=== PATIENT | female | born 1985 | race Caucasian/White ===

== ENCOUNTER 2019-05-19 19:51 | Emergency (ER) | payer OTHER ==
--- OUTSIDE RECORDS SUMMARY | 2019-05-19 19:52 | XMS REPORT ---
:1985 [facility] [address] [place] [address] Dr. Roberts [address] [place] [id number] Care Team Providers Name Role Phone Unavailable Unavailable Unavailable Problems This patient has no known problems. Allergies, Adverse Reactions, Alerts This patient has no known allergies or adverse reactions. Medications This patient has no known medications.
[2019-05-19] MEDS ORDERED: IBUPROFEN 400 MG TAB ONE (20:35)
[2019-05-19] MEDS ORDERED: CYCLOBENZAPRINE 10 MG TAB ONE (20:35)
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
[2019-05-19 22:28] VITALS: BP 123/75; TEMP 98.3; O2SAT 99
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
== END 2019-05-19 22:12 | disposition home or self-care (01) ==
LOC: ER 19:51
DX: M54.5 Low back pain (principal); M62.830 Muscle spasm of back; V43.62XA Car passenger injured in collision with other type car in traffic accident, initial encounter; Y93.89 Activity, other specified; Y92.410 Unspecified street and highway as the place of occurrence of the external cause
CPT/HCPCS: 72070; 99284

== ENCOUNTER 2019-12-26 20:01 | Emergency (ER) | payer OTHER ==
--- NOTE | 2019-12-26 21:55 | ER ---
Nurse's Notes [facility] Name: Basia Santana Age: 34 yrs Sex: Female : 1985 Arrival Date: 12/26/2019 Time: 20:02 Bed Waiting Private MD: Diagnosis: Presentation: 12/25 20:46 Chief complaint: Patient states: "covid" symptoms for 3 days, chills fever body aches dm5 migraines, tightness of chest can't breathe, Temp not taken at home, temp 99 here. Coronavirus screen: Patient reports a cough. Patient reports shortness of breath or difficulty breathing. Patient reports a measured and/or subjective temperature greater than 100.4F. Patient reports contact with known and/or suspected case of COVID-19. Ebola Screen: Patient negative for fever greater than or equal to 101.5 degrees Fahrenheit, and additional compatible Ebola Virus Disease symptoms Patient denies exposure to infectious person. Patient denies travel to an Ebola-affected area in the 21 days before illness onset. No symptoms or risks identified at this time. Initial Sepsis Screen: Does the patient meet any 2 criteria? No. Patient's initial sepsis screen is negative. Does the patient have a suspected source of infection? Yes: Other: possible COVID. Risk Assessment: Do you want to hurt yourself or someone else? Patient reports no desire to harm self or others. Onset of symptoms was December 23, 2019. 20:46 Method Of Arrival: Ambulatory dm5 20:46 Acuity: JANETT 4 dm5 Historical: - Allergies: 20:49 No Known Allergies; dm5 Vital Signs: 20:46 BP 118 / 76; Pulse 97; Resp 18; Temp 99(O); Pulse Ox 98% on R/A; Weight 72.57 kg (R); dm5 Height 5 ft. 3 in. (160.02 cm) (R); Pain 7/10; 20:46 Body Mass Index 28.34 (72.57 kg, 160.02 cm) dm5 ED Course: 20:02 Patient arrived in ED. cl3 20:49 Triage completed. dm5 Administered Medications: No medications were administered Outcome: 21:55 Patient left the ED. dm5 Signatures: Delores Anna RN RN dm5 Pradip Pedro 3
[2019-12-26 21:59] VITALS: BP 118/76; TEMP 99; O2SAT 98
== END 2019-12-26 21:55 | disposition left against medical advice (07) ==
LOC: ER 20:01
DX: R50.9 Fever, unspecified (principal); Z53.21 Procedure and treatment not carried out due to patient leaving prior to being seen by health care provider
CPT/HCPCS: 99281

== ENCOUNTER 2022-02-10 11:47 | Emergency (ER) | payer SELFPAY ==
--- OUTSIDE RECORDS SUMMARY | 2022-02-10 11:51 | XMS REPORT | Continuity of Care Document ---
:1985 Author Organization [facility] t Address [address] [place] [address] Care Team Providers Name Role Phone KALIA CHRISTINE Primary Care Physician Unavailable APURVA SQUIRES Attending Clinician Unavailable Oxana Squires DO Attending Clinician Apurva Jha Attending Clinician Po, Acute Care Clinic Attending Clinician Unavailable Payers Payer Name Policy Type Policy Number Effective Date Expiration Date S cristel [facility] - [id number] 2016 OUT OF STATE 00:00:00 [facility] [id number] [address] [facility] MEDICAID 00:00:00 Problems Condition Condition Condition Status Onset Resolution Last Treating Co mments Source Name Details Category Date Date Treatment Clinician Date ASCUS of ASCUS of Disease Active Overview: Un abner cervix cervix 5-13 07/2018 ity of with with 00:00: per Dr. Encinas negative negative 00 [facility] high risk high risk records [facility] HPV HPV in external provided. Needs repeat pap and cotesting in 2021 Encounter Encounter Disease Active Uni vers for for 507 [place] prescript[place] 00 Medical depo-Prove depo-Prove Br anch ra ra Contracept Contracept Disease Active U nivers hailey hailey 6-03 [place] of management [place] Over Over Disease Active Univers weight weight 6-03 ity of 00:00: [place] 00 Medical Branch Allergies, Adverse Reactions, Alerts Allergy Allergy Status Severity Reaction(s) Onset Inactive Treating Comm ents Source Name Type Date Date Clinician NO KNOWN Drug Active Univers ALLERGIE Class ity of S [facility] Social History Social Habit Start Date Stop Date Quantity Comments Source Sex Assigned At [facility] [place] y of [facility] Exposure to Not sure University of SARS-CoV-2 [facility] (event) [place] History of Cigarette Smoker Universi ty of tobacco use [facility] Tobacco use and 2018-10-29 2018-10-29 Never used Universit y of exposure 00:00:00 00:00:00 [facility] Cigarettes smoked 2018-10-29 2018-10-29 Univers ity of current (pack per 00:00:00 00:00:00 [facility] ) - Reported Branch Cigarette 2018-10-29 2018-10-29 University of pack-years 00:00:00 00:00:00 [facility] Alcohol intake 2018-10-29 2018-10-29 Current drinker of Un iversity of 00:00:00 00:00:00 alcohol (finding) [facility] Alcohol Comment 2009-03-02 2009-03-02 occasionally Univers ity of 00:00:00 00:00:00 [facility] Smoking Status Start Date Stop Date Source Current every day smoker 2018-10-29 00:00:00 Uni versity of [facility] Medications Ordered Filled Start Stop Current Ordering Indication Dosage Frequency Signature Comments Components Source Medication Medication Date Date Medication? Clinician (SIG) Name Name ampicillin- 2019-06 2020- No 3000mg 3,000 mg, [facility] sulbactam 08-07 IV ity of (UNASYN) 01:00[place] 00:43 [place] 3[place] mg in 00 :00 ONCE, 1 Medic al NaCl 0.9% dose, [facility] h (NS) 100 mL 06/05/20 MINI-BAG at 1900, 100 mL
Reas on for Anti-Infec tive: Empiric Therapy for Suspected Infection< br>Empiric Therapy Site: Skin / Soft tissue
Duration of therapy: 72 hours FENTanyl PF 2019-06- No 50ug 50 mcg, Un abner (SUBLIMAZE 08-06 Slow IV ity o f (PF)) 23:15: 23:09 Push, [place] injection 00 :00 ONCE, 1 Medical 50 mcg dose, Fri Branch 06/05/20 at 1715, Routine amoxicillin 2020- 2020- No [id number] 1{tbl} Take 1 Univers -clavulanat 2-18 12-29 tablet by it y of e 875-125 00:00: 05:59 mouth [place] mg per 00 :00 every 12 Medical tablet (twelve) Branch hours for 10 days. medroxyPROG 2018- Yes [id number] 150mg Univers ESTERone 5-07 ity of (DEPO-PROVE 15:00: [place] RA) 00 Medical injection Branch 150 mg medroxyPROG 2018-0 Yes [id number] 150mg Univers ESTERone 5-07 ity of (DEPO-PROVE 15:00: [place] RA) 00 Medical injection Branch 150 mg medroxyPROG 2018- Yes [id number] 150mg Univers ESTERone 5-07 ity of (DEPO-PROVE 15:00: [place] RA) 00 Medical injection Branch 150 mg isotretinoi Yes Take by Uni vers n (ABSORICA 5-07 mouth. ity of ORAL) 14:36: [address] isotretinoi Yes Take by Uni vers n (ABSORICA 5-07 mouth. ity of ORAL) 14:36: [address] isotretinoi Yes Take by Uni vers n (ABSORICA 5-07 mouth. ity of ORAL) 14:36: [address] Immunizations Ordered Filled Immunization Date Status Comments [facility] e Immunization Name Name Influenza Virus 2018-04-06 Completed Universit y of Vaccine Quad .5 mL 00:00:00 [facility] IM 6+ MO [place] Influenza Virus 2018-04-06 Completed Universit y of Vaccine Quad .5 mL 00:00:00 [facility] IM 6+ MO [place] Influenza Virus 2018-04-06 Completed Universit y of Vaccine Quad .5 mL 00:00:00 [facility] IM 6+ MO [place] Influenza Virus 2015-09-25 Completed Universit y of Vaccine Quad IM 3+ 00:00:00 [facility] Influenza Virus 2015-09-25 Completed Universit y of Vaccine Quad IM 3+ 00:00:00 [facility] Influenza Virus 2015-09-25 Completed Universit y of Vaccine Quad IM 3+ 00:00:00 [facility] Influenza Virus 2015-03-25 Completed Universit y of Vaccine Quad IM 3+ 00:00:00 [facility] Influenza Virus 2015-03-25 Completed Universit y of Vaccine Quad IM 3+ 00:00:00 [facility] Influenza Virus 2015-03-25 Completed Universit y of Vaccine Quad IM 3+ 00:00:00 [facility] TDAP 2015-02-25 Completed University 00:00:00 [facility] TDAP 2015-02-25 Completed University 00:00:00 [facility] TDAP 2015-02-25 Completed [facility] 00:00:00 [facility] Vital Signs Vital Name Observation Time Observation Value Comments Source Systolic blood 2020-06-06 01:28:00 119 mm[Hg] Univer sity of pressure [facility] Diastolic blood 2020-06-06 01:28:00 56 mm[Hg] [facility] Heart rate 2020-06-06 01:28:00 61 /min [facility] Respiratory rate 2020-06-06 01:28:00 16 /min [facility] Oxygen saturation in 2020-06-06 01:28:00 100 /min [facility] Arterial blood by [facility] Pulse oximetry [place] Body temperature 2020-06-05 21:30:00 37.33 Mandi [facility] Body height 2020-06-05 21:30:00 160 cm [facility] Body weight 2020-06-05 21:30:00 76.839 kg [facility] BMI 2020-06-05 21:30:00 30.01 kg/m2 [facility] Procedures Procedure Date / Time Performed Performing Clinician Sour e URINALYSIS 2020-06-05 22:41:00 Oxana Squires [facility] POCT TEST 2020-06-05 22:41:00 Ox[facility] Squires [facility] 2020-06-05 22:38:00 Oxana Squires [facility] HEPATIC FUNCTION PANEL 2020-06-05 22:38:[address] [facility] ([id number]) [facility] (ALB,T.PRO,BILI T,BU/BC,ALT,AST,ALK PHOS) BASIC METABOLIC PANEL 2020-06-05 22:38:00 Oxana Squires [facility] (NA, K, CL, CO2, Medical Branch GLUCOSE, BUN, CREATININE, CA) CBC WITH DIFF 2020-06-05 22:38:00 Oxana Squires Universit y of [facility] NOTICE OF PRIVACY 2020-06-05 21:15:09 Doctor Unassigned, No [facility] CONSENT/REFUSAL FOR 2020-06-05 21:14:46 Doctor Unassigned, No [facility] AND Name [facility] Branch TREATMENT Encounters Start End Encounter Admission Attending Care Care Encounter Source Date/Time Date/Time Type Type Clinicians Facility Department ID 2021-04-17 Emergency [facility] [id number] Univers 12:12:15 ity [facility] [place] [facility] 2021-06-07 2021-06-07 Outpatient [facility] [id number] Univers 15:15:00 15:15:00 APURVA [id number] ity [facility] [place] [facility] 2021-06-07 2021-06-07 [facility] [id number] Univers 15:15:00 15:15:00 APURVA [facility] 2020-06-05 2020-06-05 Emergency [facility] [id number] Univers 15:34:00 19:35:00 Oxana [place] [id number] ity of [place] [id number] [facility] [phone] [facility] 084 Branch 2019-12-26 2019-12-26 Telephone [facility] [id number] Univers 00:00:00 00:00:00 Apurva Le [facility] [id number] it y of [place] [id number] Scottie as Professio [phone] Co dical nal [address] [place] [address] 2019-12-26 2019-12-26 Telephone Pob1, Acute [facility] [id number] Univers 00:00:00 00:00:00 [facility] [id number] ity of [place] [id number] Scottie as Professio [phone] Co dical nal [address] [place] [address] Results Test Description Test Time Test Comments Results Result Comments Source Urinalysis 2020-06-05 23:17:00 Test Item Value Reference Range Interpretation Comme nts APPEARANCE (test code = Clear Clear 7463010208) COLOR (test code = 3583517117) Yellow Yellow PH (test code = 7026349163) 4.8-8.0 SP GRAVITY (test code = 1.003-1.030 4745011145) GLU U QUAL (test code = Negative Negative 7788756900) BLOOD (test code = 6848860187) Negative Negative KETONES (test code = 3787958743) Negative Negative PROTEIN (test code = 2887-8) Negative Negative UROBILIN (test code = 0.2 mg/dL See_Comment [Auto mated message] The 6928737452) system which ge nerated this result transmit ofelia reference range: 0-1.0 mg /dL. The reference range was not used to interpret th is result as normal/abnormal . BILIRUBIN (test code = Negative Negative 3617792741) NITRITE (test code = 2449547459) Negative Negative LEUK ANA (test code = Negative Negative 5916484132) RBC/HPF (test code = 9523927868) <1 See_Comment [Automated message] The system which ge nerated this result transmit ofelia reference range: 0 - 3 HP F. The reference range was not used to interpret th is result as normal/abnormal . WBC/HPF (test code = 3271454187) <1 See_Comment [Automated message] The system which ge nerated this result transmit ofelia reference range: 0 - 5 HP F. The reference range was not used to interpret th is result as normal/abnormal . BACTERIA (test code = Negative Negative 9143212366) Lab Interpretation (test code = Normal 54161-5) [facility] (ALB, T.PRO, BILI T, BU/BC, ALT, AST, ALK PHOS)2020-06-05 23:11:00 Test Item Value Reference Range Interpretation Comments TOTAL BILI (test code = 0516981564) 0.5 mg/dL 0.1-1.1 BILI UNCON (test code = 1990341637) 0.5 mg/dL 0.1-1.1 BILI CONJ (test code = 9076145909) 0.0 mg/dL 0-0.3 T PROTEIN (test code = 1350904454) 7.3 g/dL 6.3-8.2 ALBUMIN (test code = 0985541862) 4.2 g/dL 3.5-5 ALK PHOS (test code = 6530180963) 69 U/L 34-122 ALTv (test code = 1742-6) 25 U/L 5-35 AST(SGOT) (test code = 2346582292) 24 U/L 13-40 Lab Interpretation (test code = Normal 88059-3) [facility] Metabolic Panel (NA, K, CL, CO2, GLUCOSE, BUN, CREATININE, CA)2020-06-05 23:10:00 Test Item Value Reference Range Interpretation Comments NA (test code = 139 mmol/L 135-145 5399439165) K (test code = 3.8 mmol/L 3.5-5 1311117486) CL (test code = 103 mmol/L 98-108 6614722889) CO2 TOTAL (test code = 28 mmol/L 23-31 5835927314) AGAP (test code = 2-16 9860752677) BUN (test code = 14 mg/dL 7-23 5725828902) GLUCOSE (test code = 106 mg/dL 70-110 9075196628) CREATININE (test code 0.75 mg/dL 0.5-1.04 = 5882135973) CALCIUM (test code = 9.6 mg/dL 8.6-10.6 4802832198) eGFR Calculation mL/min/1.73m2 (Non-) (test code = 3370120141) eGFR Calculation mL/min/1.73m2 () (test code = 7001481054) KRISTY (test code = KRISTY) Association of Glomerular Filtration Rate (GFR) and Staging of Kidney Disease* + -+ + ---+| GFR (mL/min/1.73 m2) ?| With Kidney Damage ?| ?Without Kidney Damage+ -------+ ------+ ---------+| ?>90 ?| ?Stage one ?| ? Normal ?+ --+ -+ ----+| ?60-89 ?| ?Stage two ?| ? Decreased GFR ? + -+ + ---+| ?30-59 ?| ?Stage three ?| ? Stage three ? + -+ + ---+| ?15-29 ?| ?Stage four ? | ? Stage four ?+ --+ -+ ----+| ?<15 (or dialysis) ? ?| ?Stage five ? | ? Stage five ?+ --+ -+ ----+ *Each stage assumes the associated GFR level has been in effect for at least three months. ?Stages 1 to 5, with or without kidney disease, indicate chronic kidney disease. Notes: Determination of stages one and two (with eGFR >59mL/min/1.73 m2) requires estimation of kidney damage for at least three months as defined by structural or functional abnormalities of the kidney, manifested by either:Pathological abnormalities or Markers of kidney damage (including abnormalities in the composition of the blood or urine or abnormalities in imaging tests). [facility] [id number] 23:10:00 Test Item Value Reference Range Interpretation Comments LIPASE (test code = 9293141626) 76 U/L 0-220 Lab Interpretation (test code = Normal 57571-1) [facility] with [id number] 23:07:00 Test Item Value Reference Range Interpretation Comments WBC (test code = See_Comment [Automated message] 6690-2) The system [employer] generated this result transmitted ref erence range: 4.30 - 1 1.10 10*3/?L. The re ference range was not u sed to interpret this result as normal/abnor mal. RBC (test code = See_Comment [Automated message] 789-8) The system [employer] generated this result transmitted ref erence range: 3.93 - 5 .25 10*6/?L. The re ference range was not u sed to interpret this result as normal/abnor mal. HGB (test code = 12.3 g/dL 11.6-15 718-7) HCT (test code = 37.1 % 35.7-45.2 4544-3) MCV (test code = 92.3 fL 80.6-95.5 787-2) MCH (test code = 30.6 pg 25.9-32.8 785-6) MCHC (test code = 33.2 g/dL 31.6-35.1 786-4) RDW-SD (test code 43.3 fL 39-49.9 = 99500-7) RDW-CV (test code 13.2 % 12-15.5 = 788-0) PLT (test code = See_Comment [Automated message] 777-3) The system whic h generated this result transmitted ref erence range: 166 - 35 8 10*3/?L. The re ference range was not u sed to interpret this result as normal/abnor mal. MPV (test code = 9.9 fL 9.5-12.9 26353-1) NRBC/100 WBC (test See_Comment [Automat ed message] code = 3151776406) The syste m which generated this result transmitted ref erence range: 0.0 - 10 .0 /100 WBCs. The refer ence range was not u sed to interpret this result as normal/abnor mal. NRBC x10^3 (test <0.01 See_Comment [Automated message] code = 2353678005) The syste m which generated this result transmitted ref erence range: 10*3/?L. The reference range was not used to interpr et this result as normal/abnormal . GRAN MAT (NEUT) % 68.7 % (test code = 770-8) IMM GRAN % (test 0.70 % code = 0182965143) LYMPH % (test code 22.3 % = 736-9) MONO % (test code 5.4 % = 5905-5) EOS % (test code = 2.3 % 713-8) BASO % (test code 0.6 % = 706-2) GRAN MAT 6.21 10*3/uL 1.88-7.09 x10^3(ANC) (test code = 0294445211) IMM GRAN x10^3 0.06 10*3/uL 0-0.06 (test code = 2336027748) LYMPH x10^3 (test 2.02 10*3/uL 1.32-3.29 code = 731-0) MONO x10^3 (test 0.49 10*3/uL 0.33-0.92 code = 742-7) EOS x10^3 (test 0.21 10*3/uL 0.03-0.39 code = 711-2) BASO x10^3 (test 0.05 10*3/uL 0.01-0.07 code = 704-7) [facility] [id number] 22:41:00 Test Item Value Reference Range Interpretation Comments POCT PREG (test code = 1605) negative On board controls acceptable with present C Line (test code = 3574) POCT PREG LOT # (test code = 3575) [id number] POCT PREG TEST DATE (test 09-16-2021 code = 3576) Lab Interpretation (test code = Normal 18207-5) [facility]"
[2022-02-10 13:34] LABS: Urine Blood Negative (Negative); Urine Glucose 1+ (Negative); Urine Protein 2+ (Negative); Urine Specific Gravity 1.015 (1.005-1.030)
[2022-02-10 14:08] LABS: Urine Specific Gravity/Preg 1.015 (1.005-1.030)
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
[2022-02-10 14:19] LABS: Urine Bacteria Loaded /HPF (<20); Urine RBC <5 /HPF (None Seen)
[2022-02-10 15:36] VITALS: BP 143/85; TEMP 97.6; O2SAT 99
== END 2022-02-10 14:39 | disposition home or self-care (01) ==
LOC: ER 11:47
DX: N39.0 Urinary tract infection, site not specified (principal)
CPT/HCPCS: 81003; 81015; 81025; 87077; 87086; 87088; 87186; 99281

== ENCOUNTER 2023-06-01 16:38 | Emergency (ER) | payer OTHER, SELFPAY ==
--- OUTSIDE RECORDS SUMMARY | 2023-06-01 16:41 | XMS REPORT | Continuity of Care Document ---
Author Name Unknown Address [address] [place] [address] [facility] thconnect Address [address] [place] [address] Care Team Providers Care Health Sciences Program Coordinator Name Role Phone KALIA CHRISTINE Primary Care Physician Unav ailable APURVA SQUIRES [facility]ending Clin[facility] Oxana Squires DO Attending Clinician Apurva Jha Attending Clinician [facility] Attending Clinician Unav ailelton Payers Payer Name Policy Type Policy Number Effective Date Expirati on Date Source [facility] [id number] 2016 00:00:00 [facility] MEDICA[facility] [id number] 2018 00:00:00 Problems Condition Name Condition Details Condition Category Status Onset Date Resolution Date Last Treatment Date Treating Clinician Comments Source ASCUS of cervix with negative high risk HPV ASCUS of cervix with negative high risk HPV Disease Active 10-29 00:00: 00 Overview: 07/[address] Kang records in external provided. Needs repeat pap and cotesting in 2021 [facility] Encounter for prescripti on for depo-Prove ra Encounter for prescripti on for depo-Prove ra Disease Active 10-23 00:00: 00 [facility] Contracept hailey management Contracept hailey management Disease Active 11-19 00:00: 00 [facility] Over weight Over weight Disease Active 11-19 00:00: 00 [facility] Allergies, Adverse Reactions, Alerts Allergy Name Allergy Type Status Severity Reaction(s) Onset Date Inactive Date Treating Clinician Comments Source NO KNOWN ALLERGIE S Drug Class Active [facility] Social History Social Habit Start Date Stop Date Quantity Comments Source Sex Assigned At [facility] Exposure to SARS-CoV-2 (event) Not sure [facility] History of tobacco use Cigarette Smoker [facility] Tobacco use and exposure 2018-10-29 00:00:00 2018-10-29 00:00:00 Never used [facility] Cigarettes smoked current (pack per day) - Reported 2018-10-29 00:00:00 2018-10-29 00:00:00 [facility] Cigarette pack-years 2018-10-29 00:00:00 2018-10-29 00:00:00 [facility] Alcohol intake 2018-10-29 00:00:00 2018-10-29 00:00:00 Current drinker of alcohol (finding) [facility] Alcohol Comment 2009-03-02 00:00:00 2009-03-02 00:00:00 occasionally [facility] Smoking Status Start Date Stop Date Source Current every day smoker 2018-10-29 00:00:00 [facility] Medications Ordered Medication Name Filled Medication Name Start Date Stop Date Current Medication? Ordering Clinician Indication Dosage Frequency Signature (SIG) Comments Components Source ampicillin- sulbactam (UNASYN) 3,000 mg in NaCl 0.9% (NS) 100 mL MINI-BAG 2019-06 01:00: 00 06-06 00:43 :00 No 3000mg 3,000 mg, IV Piggyback, ONCE, 1 dose, Mon06/05/20 at 1900, 100 mL
Reas on for Anti-Infec tive: Empiric Therapy for Suspected Infection< br>Empiric Therapy Site: Skin / Soft tissue
Duration of therapy: 72 hours [facility] FENTanyl PF (SUBLIMAZE (PF)) injection 50 mcg 2019-06 23:15: 00 06-05 23:09 :00 No 50ug 50 mcg, Slow IV Push, ONCE, 1 dose, Mon06/05/20 at 1715, Routine [facility] amoxicillin -clavulanat e 875-125 mg per tablet 2019-06 00:00: 00 06-16 05:59 :00 No [id number] 1{tbl} Take 1 tablet by mouth every 12 (twelve) hours for 10 days. [facility] medroxyPROG ESTERone (DEPO-PROVE RA) injection 150 mg 10-23 15:00: 00 Yes [id number] 150mg [facility] medroxyPROG ESTERone (DEPO-PROVE RA) injection 150 mg 10-23 15:00: 00 Yes [id number] 150mg [facility] medroxyPROG ESTERone (DEPO-PROVE RA) injection 150 mg 10-23 15:00: 00 Yes [id number] 150mg [facility] isotretinoi n (ABSORICA ORAL) 10-23 14:36: 44 Yes Take by mouth. [facility] isotretinoi n (ABSORICA ORAL) 10-23 14:36: 44 Yes Take by mouth. [facility] isotretinoi n (ABSORICA ORAL) 10-23 14:36: 44 Yes Take by mouth. [facility] Vital Signs Vital Name Observation Time Observation Value Comments S zakiaaminata Systolic blood pressure 2020-06-06 01:28:00 119 mm[Hg] [facility] Diastolic blood pressure 2020-06-06 01:28:00 56 mm[Hg] [facility] Heart rate 2020-06-06 01:28:00 61 /min [facility] Respiratory rate 2020-06-06 01:28:00 16 /min [facility] Oxygen saturation in Arterial blood by Pulse oximetry 2020-06-06 01:28:00 100 /min [facility] Body temperature 2020-06-05 21:30:00 37.33 Mandi [facility] Body height 2020-06-05 21:30:00 160 cm [facility] Body weight 2020-06-05 21:30:00 76.839 kg [facility] BMI 2020-06-05 21:30:00 30.01 kg/m2 [facility] Procedures Procedure Date / Time Performed Performing Clinicia n Source URINALYSIS 2020-06-05 22:41:00 Oxana Squires Un [facility] POCT TEST 2020-06-05 22:41:00 Connie Squires ra [facility] LIPASE 2020-06-05 22:38:00 Oxana Squires [facility] HEPATIC FUNCTION PANEL (99400) (ALB,T.PRO,BILI T,BU/BC,ALT,AST,ALK PHOS) 2020-06-05 22:38:00 Oxana Squires [facility] BASIC METABOLIC PANEL (NA, K, CL, CO2, GLUCOSE, BUN, CREATININE, CA) 2020-06-05 22:38:00 Oxana Squires [facility] CBC WITH DIFF 2020-06-05 22:38:00 Oxana Squires [facility] NOTICE OF PRIVACY PRACTICES 2020-06-05 21:15:09 Doctor Unassigned, [place] [facility] CONSENT/REFUSAL FOR DIAGNOSIS AND TREATMENT 2020-06-05 21:14:46 Doctor Unassigned, [place] [facility] Encounters Start Date/Time End Date/Time Encounter Type Admission Type Attending Clinicians Care Facility Care Department Encounter ID Source 2021-04-17 12:12:15 Emergency [facility] [id number] [facility] 2023-05-31 11:30:21 2023-05-31 11:30:21 Outpatient [facility] [id number] Fernie Mckinney 2023-01-04 16:16:09 2023-01-04 16:16:09 Outpatient [facility] [id number] Fernie Mckinney 2021-06-07 15:15:00 2021-06-07 15:15:00 Outpatient APURVA TORRES [facility] [id number] [facility] 2020-06-05 15:34:00 2020-06-05 19:35:00 Emergency Oxana Squires [facility] [id number] [facility] 2019-12-26 00:00:00 2019-12-26 00:00:00 Telephone Apurva Squires [facility] [address] [id number]..[id number] [facility] 2019-12-26 00:00:00 2019-12-26 00:00:00 Telephone Stefano, Acute Care Clinic [facility] [address] 1..[id number] [facility] Results Test Description Test Time Test Comments Results Result Co mments Source [facility] (ALB, T.PRO, BILI T, BU/BC, ALT, AST, ALK PHOS)2020-06-05 23:11:00* Test Item Value Reference Range Interpretation Comme nts TOTAL BILI (test code = 8699927651) 0.5 mg/dL 0.1-1.1 BILI UNCON (test code = 2103712796) 0.5 mg/dL 0.1-1.1 BILI CONJ (test code = 7338419986) 0.0 mg/dL 0-0.3 T PROTEIN (test code = 1153733470) 7.3 g/dL 6.3-8.2 ALBUMIN (test code = 5615280939) 4.2 g/dL 3.5-5 ALK PHOS (test code = 2471527115) 69 U/L 34-122 ALTv (test code = 1742-6) 25 U/L 5-35 AST(SGOT) (test code = 1861600759) 24 U/L 13-40 Lab Interpretation (test cod e = 35721-3) Normal [facility] (NA, K, CL, CO2, GLUCOSE, BUN, CREATININE, CA)2020-06-05 23:10:00* Test Item Value Reference Range Interpretation Comme nts NA (test code = 5301097514) 139 mmol/L 135-145 K (test code = 5884987060) 3.8 mmol/L 3.5-5 CL (test code = 6315354644) 103 mmol/L 98-108 CO2 TOTAL (test code = 2806953670) 28 mmol/L 23-31 AGAP (test code = 7113574640) 2-16 BUN (test code = 0119695745) 14 mg/dL 7-23 GLUCOSE (test code = 3436420111) 106 mg/dL 70-110 CREATININE (test code = 1706930269) 0.75 mg/dL 0.5-1.04 CALCIUM (test code = 9049647617) 9.6 mg/dL 8.6-10.6 eGFR Calculation (Non-) (test code = 0048296074) mL/min/1.73m2 eGFR Calculation () (test code = 4747168612) mL/min/1.73m2 KRISTY (test code = KRISTY) Association of [...] or urine or abnormalities in imaging tests). [facility] [id number] 23:10:00* Test Item Value Reference Range Interpretation Comme nts LIPASE (test code = 6321721421) 76 U/L 0-220 Lab Interpretation (test cod e = 06218-5) Normal [facility] with [id number] 23:07:00* Test Item Value Reference Range Interpretation Comme nts WBC (test code = 6690-2) See_Comment [Automated [employer] ge] The system which generated this result transmitted reference range: 4.30 - 11.10 10*3/?L. The reference range was not used to interpret this result as normal/abnormal. RBC (test code = 789-8) See_Comment [Automated messa ge] The system which generated this result transmitted reference range: 3.93 - 5.25 10*6/?L. The reference range was not used to interpret this result as normal/abnormal. HGB (test code = 718-7) 12.3 g/dL 11.6-15 HCT (test code = 4544-3) 37.1 % 35.7-45.2 MCV (test code = 787-2) 92.3 fL 80.6-95.5 MCH (test code = 785-6) 30.6 pg 25.9-32.8 MCHC (test code = 786-4) 33.2 g/dL 31.6-35.1 RDW-SD (test code = 51502-4) 43.3 fL 39-49.9 RDW-CV (test code = 788-0) 13.2 % 12-15.5 PLT (test code = 777-3) See_Comment [Automated messa ge] The system which generated this result transmitted reference range: 166 - 358 10*3/?L. The reference range was not used to interpret this result as normal/abnormal. MPV (test code = 23558-6) 9.9 fL 9.5-12.9 NRBC/100 WBC (test code = 7983566247) See_Comment [Automated [employer] ssage] The system which generated this result transmitted reference range: 0.0 - 10.0 /100 WBCs. The reference range was not used to interpret this result as normal/abnormal. NRBC x10^3 (test code = 4960928909) <0.01 See_Comment [Automated me ssage] The system which generated this result transmitted reference range: 10*3/?L. The reference range was not used to interpret this result as normal/abnormal. GRAN MAT (NEUT) % (test code = 770-8) 68.7 % IMM GRAN % (test code = 3504140401) 0.70 % LYMPH % (test code = 736-9) 22.3 % MONO % (test code = 5905-5) 5.4 % EOS % (test code = 713-8) 2.3 % BASO % (test code = 706-2) 0.6 % GRAN MAT x10^3(ANC) (test code = 7717388903) 6.21 10*3/uL 1.88-7.09 IMM GRAN x10^3 (test code = 8699897011) 0.06 10*3/uL 0-0.06 LYMPH x10^3 (test code = 731-0) 2.02 10*3/uL 1.32-3.29 MONO x10^3 (test code = 742-7) 0.49 10*3/uL 0.33-0.92 EOS x10^3 (test code = 711-2) 0.21 10*3/uL 0.03-0.39 BASO x10^3 (test code = 704-7) 0.05 10*3/uL 0.01-0.07 [facility] [id number] 22:41:00* Test Item Value Reference Range Interpretation Comme nts POCT PREG (test code = 1605) negative On board controls acceptable with C Line (test code = 3574) present POCT PREG LOT # (test code = 3575) [id number] POCT PREG TEST DATE ( test code = 3576) 09-16-2021 Lab Interpretation (test cod e = 39568-1) Normal [facility]"
--- NOTE | 2023-06-01 17:29 | RAD REPORT ---
EXAM DESCRIPTION: RAD - Knee Left 3 View - 06/01/2023 5:03 pm CLINICAL HISTORY: Left knee pain FINDINGS: Intramedullary llaa and screws affix an old femoral fracture. Bony/calcific density adjacent to the distal metaphysis medial left femur likely chronic Moderate joint effusion
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
[2023-06-01] MEDS ORDERED: IBUPROFEN 200 MG TAB PO ONE (19:14)
== END 2023-06-01 19:26 | disposition home or self-care (01) ==
LOC: ER 16:38
DX: M25.462 Effusion, left knee (principal)
CPT/HCPCS: 99283